=== PATIENT | female | born 1980 | race African-American/Black ===

== ENCOUNTER 2018-12-22 04:49 | Emergency (ER) | payer OTHER ==
[~2018-12-22] VITALS: Ht 177.8 cm; Wt 90.7 kg
[2018-12-22 05:14] LABS: MONOCYTES 6.1 % (1.0-8.0)
[2018-12-22 05:15] LABS: URINE BILIRUBIN NEGATIVE (Negative); URINE BLOOD NEGATIVE (Negative); URINE CLARITY CLEAR; URINE COLOR YELLOW; URINE GLUCOSE-RANDOM* NEGATIVE (Negative); URINE KETONES 1+ (Negative); URINE LEUKOCYTES-REFLEX NEGATIVE (Negative); URINE NITRITE-REFLEX NEGATIVE (Negative); URINE PROTEIN (DIPSTICK) 2+ (Negative); URINE UROBILINOGEN 0.2 E.U./dl (0.2-1.0)
[2018-12-22 05:16] LABS: ABSOLUTE NEUTROPHILS 6.9 thou/uL (1.4-8.2); BASOPHILS 0.5 % (0.0-2.0); EOSINOPHILS 0.3 % (0.0-3.0); HEMATOCRIT 39.4 % (37.0-47.0); HEMOGLOBIN 12.4 gm/dL (12.0-15.0); LYMPHOCYTES 13.8 % (24.0-44.0); MCH 25.5 pg (26.0-34.0); MCHC 31.6 g/dL (28.0-37.0); MCV 80.6 fL (80.0-100.0); PLATELET COUNT 234 thou/uL (150-400); POLYS 79.3 % (36.0-66.0); RBC 4.89 mil/uL (4.20-5.00); RDW 24.5 % (10.5-14.5); WBC 8.7 thou/uL (4.0-11.0)
[2018-12-22 05:23] LABS: AMP/METHAMP Negative (Negative); ANION GAP 13 mmol/L (7-16); BARBITURATES Negative (Negative); BENZODIAZEPINES Negative (Negative); BUN 10 mg/dL (7-18); CALCIUM 9.6 mg/dL (8.5-10.1); CHLORIDE 100 mmol/L (98-107); CO2 24 mmol/L (21-32); COCAINE Negative (Negative); CREATININE 1.1 mg/dL (0.6-1.0); GLUCOSE 197 mg/dL (74-106); METHADONE Negative (Negative); OPIATES Negative (Negative); PCP Negative (Negative); POTASSIUM 3.4 mmol/L (3.5-5.1); SODIUM 137 mmol/L (136-145)
[2018-12-22 05:32] LABS: BACTERIA-REFLEX 1-9 Few /HPF (None Seen); CRYSTALS None Seen /LPF (None Seen); HYALINE CASTS 0-3 Few /LPF (None Seen); MUCUS 4-6 Moderate strn/LPF (None Seen); SQUAMOUS 0-3 Few /LPF (0-3); URINE RBC 0-2 Rare /HPF (0-2); URINE WBC-REFLEX 0-5 Rare /HPF (0-5)
[2018-12-22 05:34] LABS: ALBUMIN 4.5 g/dL (3.4-5.0); SGOT 26 U/L (15-37); SGPT 21 U/L (30-65); TOTAL BILIRUBIN 0.6 mg/dL (<0.1-1.0); TOTAL PROTEIN 8.3 g/dL (6.4-8.2)
[2018-12-22 08:13] VITALS: BP 133/83
--- NOTE | 2018-12-22 19:18 | EKG ---
[place] [address] [facility] [place] [address] ELECTROCARDIOGRAM REPORT Name: HARMONY ROSS Room #: DEP AMINA Naqvi#: [id number] Admission: 12/22/18 Attend Phys: Discharge: 12/22/18 Date of : 80 Report #: [id number] THIS REPORT FOR: //name// [facility] ED Test Date: 2018-12-22 Test Time: 05:07:11 Pat Name: HARMONY ROSS Department: Patient ID: [id number]- Room: Gender: [employer] Supervisor: rukhsana : 1980 Requested By: Mohan Espinoza Order Number: [id number] MD: Pasquale Alvarado Measurements Intervals [place] Rate: 97 P: 65 ME: 159 QRS: 38 QRSD: 88 T: 25 QT: 364 QTc: 463 Interpretive Statements Sinus rhythm No significant abnormality No previous ECG available for comparison Electronically Signed On 12-22-2018 19:18:39 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
== END 2018-12-22 08:13 | disposition home or self-care (01) ==
LOC: ER 04:49 → EDSEX 04:49 → ER 08:13
PROVIDERS: Emergency Medicine
DX: R41.82 Altered mental status, unspecified (principal); T40.995A Adverse effect of other psychodysleptics [hallucinogens], initial encounter; R00.0 Tachycardia, unspecified; Y92.89 Other specified places as the place of occurrence of the external cause